=== PATIENT | male | born 1990 | race Caucasian/White ===

== ENCOUNTER 2018-06-02 18:07 | Emergency (ER) | payer OTHER ==
[~2018-06-02] VITALS: Ht 177.8 cm; Wt 109.8 kg
[2018-06-02 18:36] VITALS: Ht 177.8 cm; Wt 109.8 kg
[2018-06-02 22:01] VITALS: BP 120/70
== END 2018-06-02 22:01 | disposition home or self-care (01) ==
LOC: ED 18:07
DX: L03.116 Cellulitis of left lower limb (principal)
CPT/HCPCS: 90715; J0696; J1885

== ENCOUNTER 2018-07-01 18:55 | Emergency (ER) | payer OTHER ==
[2018-07-01 19:13] VITALS: Ht 180.3 cm
[2018-07-01 20:42] LABS: BASOPHIL % 0.3 % (0-2); PLATELET COUNT 296 x10^3mcL (130-400); RED CELL DISTRIBUTION WIDTH 13.6 % (11.5-14.5)
[2018-07-01 20:50] LABS: CALCIUM 8.7 mg/dL (8.5-10.1); CARBON DIOXIDE 30.2 mmol/L (21-32); CHLORIDE SERUM 106 mmol/L (98-107); CREATININE SERUM 0.9 mg/dL (0.7-1.3); GFR1 > 60 mL/min; GLUCOSE SERUM 112 mg/dL (74-106); POTASSIUM SERUM 4.5 mmol/L (3.5-5.1); SODIUM SERUM 141 mmol/L (136-145)
[2018-07-01 20:54] LABS: ALKALINE PHOSPHATASE 120 U/L (46-116); ALT/SGPT 56 U/L (16-63); AST/SGOT 32 U/L (15-37); LIPASE 92 IU/L (73-393); TOTAL PROTEIN, SERUM 7.9 g/dL (6.4-8.2)
[2018-07-01 20:57] LABS: ALBUMIN 3.3 g/dL (3.4-5.0)
[2018-07-01 22:56] VITALS: BP 145/92
== END 2018-07-01 22:56 | disposition home or self-care (01) ==
LOC: ED 18:55
PROVIDERS: Emergency Medicine
DX: S20.212A Contusion of left front wall of thorax, initial encounter (principal); X58.XXXA Exposure to other specified factors, initial encounter; Y93.89 Activity, other specified; Y92.89 Other specified places as the place of occurrence of the external cause; Y99.8 Other external cause status
CPT/HCPCS: 36415; J2270; Q0092